=== PATIENT | male | born 1935 | race Caucasian/White ===

== ENCOUNTER 2016-11-18 01:55 | Emergency (ER) | payer OTHER ==
--- NOTE | 2016-11-18 02:06 | EDPHY ---
H & P HPI/ROS: HPI CHIEF COMPLAINT: Constipation, unable to urinate HISTORY OF PRESENT ILLNESS: This patient very pleasant 81-year-old male significant past medical history for atherosclerosis, osteoporosis, spinal stenosis, takes chronic opiates for chronic back pain, presents emergency room stating he has not had a normal bowel movement 2-3 days. He has been taking laxatives without a great result also did an enema. States of what is great concern this evening is that he was unable to urinate over the past 12 hours. States that he has only had this happen 1 other time when he got very constipated could not urinate, he was eventually able to fix his bowels and then was able to urinate again. States he has not urinated 12 hours. Complains of lower abdominal distention and discomfort. Denies back pain fever vomiting. Denies chest pain or shortness of breath. Past Medical History: Atherosclerotic disease, osteoporosis, spinal stenosis, chronic back pain on opiates Past Surgical History: No recent surgical history Social History: Denies daily use of drugs alcohol tobacco products Family History: Noncontributory ROS REVIEW OF SYSTEMS: A comprehensive 10 point review of systems is otherwise negative aside from elements mentioned in the history of present illness. Exam Constitutional triage nursing summary reviewed, vital signs reviewed, awake/ alert. Eyes normal conjunctivae and sclera, EOMI, PERRLA. HENT normal inspection, atraumatic, moist mucus membranes, no epistaxis, neck supple/ no meningismus, no raccoon eyes. Respiratory clear to auscultation bilaterally, normal breath sounds, no respiratory distress, no wheezing. Cardiovascular rate normal, regular rhythm, no murmur, no edema, distal pulses normal. Gastrointestinal abdomen distended lower abdomen suprapubic region consistent with distended bladder, hypoactive bowel sounds, no peritoneal signs Genitourinary no CVA tenderness. Musculoskeletal no midline vertebral tenderness, full range of motion, no calf swelling, no tenderness of extremities, no meningismus, good pulses, neurovascularly intact. Skin pink, warm, & dry, no rash, skin atraumatic. Neurologic awake, alert and oriented x 3, AAOx3, moves all 4 extremities equally, motor intact, sensory intact, CN II-XII intact, normal cerebellar, normal vision, normal speech. Psychiatric normal mood/affect. Heme/Lymph/Immune no lymphadenopathy. Differential Diagnosis: Urinary outflow obstruction, urinary retention, constipation, fecal impaction Medical Decision Making:plan for this patient IV establishment, blood draw CBC and BMP, check urinalysis, Samuels catheter placement, KUB. Re-evaluation: 0320: patient Samuels catheter placed. 700 cc of clear yellow urine was removed. He feels much better. Re-examination is abdomen is soft nontender no guarding or peritoneal signs not vomiting has no nausea. No chest pain or shortness of breath. I explained we should keep the catheter in due to urinary retention he will make appoint with Urology this week call there on Saturday morning for an appointment to have his catheter removed. Meanwhile I do recommend that he starts working on his bowels after taking MiraLax lots of water try to move his bowels appropriately. Also do recommend probably another enema. He understands return emergency room if he has any questions or concerns includes abdominal pain, fever, vomiting trouble with his Samuels catheter. We went over instructions on his Samuels catheter with him. He understands. Understands call Urology make a follow-up appointment does understand I will typically removed catheter here in emergency room after placement due to urinary retention causing needs time for bladder decompression. He understands this. ED x-ray KUB: One view: no free air, no evidence of bowel obstruction, stool in the rectal vault and the ascending colon. image interpreted myself. Source: Patient - Personal History Tetanus Vaccine Date: < 10 YEARS - Medical/Surgical History Hx Asthma: No Hx Chronic Respiratory Disease: No Hx Diabetes: No Hx Cardiac Disease: No Hx Renal Disease: No Hx Cirrhosis: No Hx Alcoholism: No Hx HIV/AIDS: No Hx Splenectomy or Spleen Trauma: No Other PMH: OSTEOPOROSIS, SPINAL STENOSIS - Social History Smoking Status: Never smoked Constitutional: Initial Vital Signs Temperature (C) 36.6 C 11/18/16 02:00 Heart Rate 81 11/18/16 02:00 Respiratory Rate 18 11/18/16 02:00 Blood Pressure 163/92 H 11/18/16 02:00 O2 Sat (%) 95 11/18/16 02:00 O2 Delivery Mode Room Air Allergies/Adverse Reactions: amoxicillin Allergy (Verified 11/18/16 02:08) penicillin G Allergy (Verified 11/18/16 02:08) Home Medications: Medication Instructions Recorded Ambien 03/12/16 Prednisone 03/12/16 oxyCODONE/APAP 5/325 [Percocet 1 - 2 tab PO Q4H PRN #14 tab 04/25/16 5/325 (*)] Docusate Sodium [Stool Softener] 50 mg PO 11/18/16 Herbal Drugs [[employer]] 1 each PO 11/18/16 Polyethylene Glycol 3350 [Miralax 17 gm PO DAILY #4 pkt 11/18/16 17 gm (*)] Simvastatin 10 mg PO 11/18/16 Medical Decision Making - Data Points Laboratory Results: Laboratory Results 11/18/16 02:20 11/18/16 02:20 11/18/16 11/18/16 11/18/16 03:10 02:20 02:20 WBC 14.08 10^3/uL H 10^3/uL (3.80-9.50) RBC 4.37 10^6/uL L 10^6/uL (4.40-6.38) Hgb 13.7 g/dL g/dL (13.7-17.5) Hct 41.0 % % (40.0-51.0) MCV 93.8 fL fL (81.5-99.8) MCH 31.4 pg pg (27.9-34.1) MCHC 33.4 g/dL g/dL (32.4-36.7) RDW 12.5 % % (11.5-15.2) Plt Count 356 10^3/uL 10^3/uL (150-400) MPV 9.0 fL fL (8.7-11.7) Neut % (Auto) 83.0 % H % (39.3-74.2) Lymph % (Auto) 7.7 % L % (15.0-45.0) [place] % (Auto) 7.6 % % (4.5-13.0) Eos % (Auto) 0.8 % % (0.6-7.6) Baso % (Auto) 0.5 % % (0.3-1.7) Nucleat RBC Rel Count 0.0 % % (0.0-0.2) Absolute Neuts (auto) 11.70 10^3/uL H 10^3/uL (1.70-6.50) Absolute Lymphs (auto) 1.08 10^3/uL 10^3/uL (1.00-3.00) Absolute Monos (auto) 1.07 10^3/uL H 10^3/uL (0.30-0.80) Absolute Eos (auto) 0.11 10^3/uL 10^3/uL (0.03-0.40) Absolute Basos (auto) 0.07 10^3/uL 10^3/uL (0.02-0.10) Absolute Nucleated RBC 0.00 10^3/uL 10^3/uL (0-0.01) Immature Gran % 0.4 % % (0.0-1.1) Immature Gran # 0.05 10^3/uL 10^3/uL (0.00-0.10) Sodium 136 mEq/L mEq/L (134-144) Potassium 3.9 mEq/L mEq/L (3.5-5.2) Chloride 102 mEq/L mEq/L (97-110) Carbon Dioxide 23 mEq/l mEq/l (22-31) Anion Gap 11 mEq/L mEq/L (8-16) BUN 17 mg/dL mg/dL (7-23) Creatinine 0.7 mg/dL mg/dL (0.7-1.3) Estimated GFR > 60 Glucose 92 mg/dL mg/dL (70-100) Calcium 8.9 mg/dL mg/dL (8.5-10.4) Urine Color Pending Urine Appearance Pending Urine pH Pending Ur Specific [place] Pending Urine Protein Pending Urine Ketones Pending Urine Blood Pending Urine Nitrate Pending Urine Bilirubin Pending Urine Urobilinogen Pending Ur Leukocyte Esterase Pending Ur Culture Indicated? Pending Urine Glucose Pending Departure - Departure Disposition: Home, Routine, Self-Care Clinical Impression: Urinary obstruction Constipation Qualifiers: Constipation type: other constipation type Qualified Code(s): K59.09 - Other constipation Condition: Good Instructions: Constipation (ED), Urinary Retention in Men (ED), Samuels Catheter Placement and Care (ED) Additional Instructions: 1. Drink lots of fluids stay well-hydrated. 2. Follow up with Urology to have her catheter removed. 3.Call there Saturday to make an appointment. 4. I have prescribed your MiraLax. I will take multiple doses of MiraLax to get her bowels moving. Drink lots of fluids. Referrals: Belinda Henderson MD [Primary Care Provider] - As per Instructions Nancy Sanchez MD [Medical Doctor] - As per Instructions Prescriptions: Polyethylene Glycol 3350 [Miralax 17 gm (*)] 17 gm PO DAILY #4 pkt
[2016-11-18 02:28] LABS: % IMMATURE GRANULYOCYTES 0.4 % (0.0-1.1); ABSOLUTE IMMATURE GRANULOCYTES 0.05 10^3/uL (0.00-0.10); ADD DIFF? NO; ADD MORPH? NO; ADD SCAN? NO; ATYPICAL LYMPHOCYTE FLAG 0 (0-99); FRAGMENT RBC FLAG 0 (0-99); HEMOGLOBIN 13.7 g/dL (13.7-17.5); LEFT SHIFT FLG 0 (0-99); LIPEMIA HEMOLYSIS FLAG 80 (0-99); MEAN CELL HEMOGLOBIN 31.4 pg (27.9-34.1); MEAN CELL HEMOGLOBIN CONCENTR. 33.4 g/dL (32.4-36.7); MEAN CELL VOLUME 93.8 fL (81.5-99.8); PLATELET CLUMPS FLAG 0 (0-99); PLATELET COUNT 356 10^3/uL (150-400); RED BLOOD CELL COUNT 4.37 10^6/uL (4.40-6.38); RED CELL DISTRIBUTION WIDTH 12.5 % (11.5-15.2)
[2016-11-18 02:39] LABS: ANION GAP 11 mEq/L (8-16); CALCIUM 8.9 mg/dL (8.5-10.4); CARBON DIOXIDE 23 mEq/l (22-31); CHLORIDE 102 mEq/L (97-110); CREATININE 0.7 mg/dL (0.7-1.3); GLOMERULAR FILTRATION RATE > 60; GLUCOSE 92 mg/dL (70-100); POTASSIUM 3.9 mEq/L (3.5-5.2); SODIUM 136 mEq/L (134-144)
[2016-11-18 03:17] LABS: COLOR YELLOW; LEUKOCYTE ESTERASE,URINE NEGATIVE (NEGATIVE); NITRITE,URINE NEGATIVE (NEGATIVE)
[2016-11-18 03:21] LABS: MUCUS TRACE /lpf (NONE-1+)
[2016-11-18 04:16] VITALS: BP 138/81; PULSE 70; RESP 20; TEMP 98.2; O2SAT 96
== END 2016-11-18 04:17 | disposition home or self-care (01) ==
PROC: 0T9B70Z Drainage of Bladder with Drainage Device, Via Natural or Artificial Opening (ICD-10-PCS; principal; 2016-11-18)
DX: K59.09 Other constipation (principal); N13.9 Obstructive and reflux uropathy, unspecified

== ENCOUNTER 2016-12-26 07:01 | Emergency (ER) | payer OTHER ==
[2016-12-26 07:09] VITALS: BP 121/64; PULSE 84; RESP 20; TEMP 97.5; O2SAT 96
--- NOTE | 2016-12-26 07:12 | EDPHY ---
H & P HPI/ROS: CHIEF COMPLAINT: Right eye vision loss. HISTORY OF PRESENT ILLNESS: The patient is an 81-year-old male with atherosclerotic disease, spinal stenosis, and chronic back pain, on opiates, who presents with loss of vision in his right eye. The patient returned from a hike around 2pm yesterday and started seeing a "flashing light". He reports a a curtain coming down from his right eye. He states it was "like a thumb sticking down" that was opaque in color. At onset of his symptoms he developed an associated headache localized to the right temporal region. His headache lasted for 20 minutes and was sharp in nature. This morning his vision improved, though he is still having vague definition and "flashes" in the right eye. His left eye is normal per patients report. REVIEW OF SYSTEMS: A comprehensive 10 point review of systems is otherwise negative aside from elements mentioned in the history of present illness. Past Medical/Surgical History: Atherosclerotic disease, Spinal stenosis, Chronic back pain- on opiates. Social History: Nonsmoker. No recent alcohol. Smoking Status: Never smoked Physical Exam: General Appearance: Alert, pleasant, visual acuity reviewed Eyes: Pupils equal and round, no conjunctival pallor or injection, EOMI, Visual field by confrontation: rt eye-decreased vision superior 1/2 of visual field ENT, Mouth: Mucous membranes moist Neck: Normal inspection Respiratory: Lungs are clear to auscultation Cardiovascular: Regular rate and rhythm Gastrointestinal: Abdomen is soft and non-tender Neurological: Alert, oriented x3, cranial nerves II through XII intact, motor 5/ 5, sensory intact to light touch, normal gait. Skin: Warm and dry, no rash Extremities: Nontender, no pedal edema Psychiatric: Mood and affect normal Constitutional: Initial Vital Signs Temperature (C) 36.4 C 12/26/16 07:05 Heart Rate 84 12/26/16 07:05 Respiratory Rate 20 12/26/16 07:05 Blood Pressure 121/64 H 12/26/16 07:05 O2 Sat (%) 96 12/26/16 07:05 O2 Delivery Mode Room Air Allergies/Adverse Reactions: amoxicillin Allergy (Verified 12/26/16 07:04) penicillin G Allergy (Verified 12/26/16 07:04) Home Medications: Medication Instructions Recorded Ambien 03/12/16 Prednisone 03/12/16 oxyCODONE/APAP 5/325 [Percocet 1 - 2 tab PO Q4H PRN #14 tab 04/25/16 5/325 (*)] Docusate Sodium [Stool Softener] 50 mg PO 11/18/16 Herbal Drugs [[employer]] 1 each PO 11/18/16 Polyethylene Glycol 3350 [Miralax 17 gm PO DAILY #4 pkt 11/18/16 17 gm (*)] Simvastatin 10 mg PO 11/18/16 Medical Decision Making ED Course/Re-evaluation: The patient is an 81 year old male complaining of loss of vision in the superior aspect of his right eye that started 17 hours ago. Concerning for retinal detachment. 7:30 a.m: I spoke to Dr. Manuel, Ophthalmology, He would like the patient to go directly to his office, they open at 8:30 a.m. and will see the patient this morning. Differential Diagnosis: Differential diagnosis includes hyphema, acute iritis, traumatic mydriasis, corneal abrasion, globe rupture. Departure - Departure Disposition: Home, Routine, Self-Care Clinical Impression: Retinal detachment Qualifiers: Laterality: right Qualified Code(s): H33.21 - Serous retinal detachment, right eye Condition: Good Instructions: Blurred Vision (ED) Additional Instructions: Please go directly to Dr. Manuel, Ophthalmology. office for further evaluation. Do not eat or drink anything before your office visit. Referrals: Torsten Manuel MD [Medical Doctor] - As per Instructions Report Scribed for: Marlene Ramírez Report Scribed by: Nicki Eduardo Date of Report: 12/26/16 Time of Report: 07:10 Physician Review and Approval Statement: 12/26/16 07:10 Portions of this note were transcribed by a medical communication specialist. I personally performed the history, physical exam, and medical decision-making; and confirmed the accuracy of the information in the transcribed note.
== END 2016-12-26 07:42 | disposition home or self-care (01) ==
DX: H33.21 Serous retinal detachment, right eye (principal)

== ENCOUNTER 2017-05-05 08:39 | Emergency (ER) | payer OTHER ==
[2017-05-05 08:46] VITALS: RESP 18; O2SAT 96
[2017-05-05] MEDS ORDERED: DOXYCYCLINE HYCLATE 100 MG CAP/TAB PO ONE (09:27)
--- NOTE | 2017-05-05 09:27 | EDPHY ---
H & P Time Seen by Provider: 05/05/17 09:18 HPI/ROS: CHIEF COMPLAINT: Leg leg redness HISTORY OF PRESENT ILLNESS: The patient is an 82-year-old male who presents to the emergency department with right leg redness. He states 1 week ago he was hiking and struck his heart on a log. He had an abrasion which has been healing well. It now has surrounding redness since this morning. It does not streak up the leg. He has no fevers or chills. No increased pain. No discharge. REVIEW OF SYSTEMS: My complete review of systems is negative except as mentioned in the HPI. Past Medical/Surgical History: Includes polymyalgia rheumatica, spinal stenosis, osteoporosis Smoking Status: Never smoked Physical Exam: General Appearance: Alert and no distress. Head: Pupils equal. Normal. Respiratory: No respiratory distress. Cardiac: regular rate and rhythm. Extremities: his right anterior heart has a quarter-size abrasion that appears to be healing. There is mild surrounding erythema. No significant streaking up the leg. No edema. Neurovascular intact distally. Skin: No rashes or lesions. Neuro: Alert. Normal mood and affect. Constitutional: Initial Vital Signs Temperature (C) 36.4 C 05/05/17 08:43 Heart Rate 74 05/05/17 08:43 Respiratory Rate 18 05/05/17 08:43 Blood Pressure 121/72 H 05/05/17 08:43 O2 Sat (%) 96 05/05/17 08:43 O2 Delivery Mode Room Air Allergies/Adverse Reactions: amoxicillin Allergy (Verified 05/05/17 08:42) penicillin G Allergy (Verified 05/05/17 08:42) Home Medications: Medication Instructions Recorded Ambien 03/12/16 Prednisone 03/12/16 Docusate Sodium [Stool Softener] 50 mg PO 11/18/16 Herbal Drugs [[employer]] 1 each PO 11/18/16 Polyethylene Glycol 3350 [Miralax 17 gm PO DAILY #4 pkt 11/18/16 17 gm (*)] Simvastatin 10 mg PO 11/18/16 Doxycycline Hyclate 100 mg PO BID #14 tablet 05/05/17 Medical Decision Making ED Course/Re-evaluation: In the emergency department I discussed possible etiologies with the patient. I answered all his questions. I do not feel he needs imaging. He has an allergy to penicillin. He was started on doxycycline. He is given warnings prior to leaving. He will return with worsening symptoms. Differential Diagnosis: Ventral includes but is not limited to abrasion, contusion, cellulitis, abscess , bacteremia, sepsis Departure - Departure Disposition: Home, Routine, Self-Care Clinical Impression: Cellulitis Qualifiers: Site of cellulitis: extremity Site of cellulitis of extremity: lower extremity Laterality: right Qualified Code(s): L03.115 - Cellulitis of right lower limb Condition: Good Instructions: Cellulitis (ED) Additional Instructions: Return with increasing redness, pain, fever or any other concerns. Take your entire course of antibiotics. Referrals: Belinda Henderson MD [Primary Care Provider] - 3-4 days, if not improved Prescriptions: Doxycycline Hyclate 100 mg PO BID #14 tablet
[2017-05-05 09:41] VITALS: BP 141/78; PULSE 59; TEMP 98.1
== END 2017-05-05 09:43 | disposition home or self-care (01) ==
DX: L03.115 Cellulitis of right lower limb (principal)

== ENCOUNTER 2017-05-08 09:38 | Emergency (ER) | payer OTHER ==
--- NOTE | 2017-05-08 09:56 | EDPHY ---
HPI/HX/ROS/PE/MDM Narrative: CHIEF COMPLAINT: Right leg redness HPI: The patient is an 82 y/o male complaining of worsening right leg redness. He was seen in this ED 3 days ago for an abrasion with surrounding redness he got while hiking. The redness initially went away, but has since returned. He has been taking doxycycline, but denies taking it today. Denies fever, discharge, increased pain, numbness or other pertinent symptoms. Prior medical records reviewed including ED visit with Dr. Ernandez on 05/05/17. REVIEW OF SYSTEMS: Aside from elements discussed in the HPI, a comprehensive 10-point review of systems was reviewed and is negative. PMH: Polymyalgia rheumatica, spinal stenosis, osteoporosis SOCIAL HISTORY: Lives in [place], single, retired PHYSICAL EXAM: General:Patient is alert, in no acute distress. ENT:Eyes are normal to inspection. ENT inspection normal. Neck: Normal inspection. Full range of motion. Respiratory:No respiratory distress. Breath sounds normal bilaterally. Cardiovascular: Regular rate and rhythm. Strong peripheral pulses. Normal cap refill. Abdomen:The abdomen is nontender to palpation. There are no peritoneal signs. There are normal bowel sounds. Back: Normal to inspection. No tenderness to palpation. Skin: Quarter size abrasion healing well on right medial lower leg with erythema that fills the borders and 2 inches outside of the border in inferior direction. Otherwise normal color. No rash. Warm and dry. Extremities: Normal appearance. Full range of motion. Neuro: Oriented x3. Normal motor function. Normal sensory function. Portions of this note were transcribed by an ED scribe. I personally performed the history, physical exam, and medical decision making; and confirm the accuracy of the information in the transcribed note. ED Course: The patient is an 82 y/o male presenting with a quarter size abrasion healing well on his right medial lower leg. There is erythema around the abrasion that fills the borders and 2 inches outside of the border in the inferior direction. Per the patient, the erythema initially decreased but has since blossomed. 1020: Consulted with Dr. Apple, infectious disease, he accepts to see this patient at 3pm today in the infectious disease clinic. 1026: Reassessed patient and discussed plan to place him on Clindamycin and followup with Dr. Apple. Return precautions provided; patient is comfortable with this plan. General Time Seen by Provider: 05/08/17 09:46 Initial Vital Signs: Initial Vital Signs Temperature (C) 36.4 C 05/08/17 09:40 Heart Rate 70 05/08/17 09:40 Respiratory Rate 18 05/08/17 09:40 Blood Pressure 99/59 L 05/08/17 09:40 O2 Sat (%) 95 05/08/17 09:40 O2 Delivery Mode Room Air Allergies/Adverse Reactions: amoxicillin Allergy (Verified 05/08/17 09:39) penicillin G Allergy (Verified 05/08/17 09:39) Home Medications: Medication Instructions Recorded Ambien 03/12/16 Prednisone 03/12/16 Docusate Sodium [Stool Softener] 50 mg PO 11/18/16 Herbal Drugs [[employer]] 1 each PO 11/18/16 Polyethylene Glycol 3350 [Miralax 17 gm PO DAILY #4 pkt 11/18/16 17 gm (*)] Simvastatin 10 mg PO 11/18/16 Doxycycline Hyclate 100 mg PO BID #14 tablet 05/05/17 Clindamycin HCl [Clindamycin] 300 mg PO TID #30 cap 05/08/17 Departure - Departure Disposition: Home, Routine, Self-Care Clinical Impression: Cellulitis Qualifiers: Site of cellulitis: extremity Site of cellulitis of extremity: lower extremity Laterality: right Qualified Code(s): L03.115 - Cellulitis of right lower limb Condition: Good Instructions: Cellulitis (ED) Additional Instructions: You have an appointment with Dr. Manuel Apple, infectious disease, at 3pm this afternoon. You can call him if this time does not work for you. Take Clindamycin as prescribed, stop taking doxycycline. Return to the Emergency Department for fever, redness, discharge from wound, increasing pain or other worsening of condition. Referrals: Belinda Henderson MD [Primary Care Provider] - As per Instructions Manuel Apple MD [Medical Doctor] - As per Instructions Prescriptions: Clindamycin HCl [Clindamycin] 300 mg PO TID #30 cap Report Scribed for: Gallo Ashraf Report Scribed by: Mell García Date of Report: 05/08/17 Time of Report: 10:02
[2017-05-08 10:45] VITALS: BP 102/73; PULSE 81; RESP 16; TEMP 99; O2SAT 97
== END 2017-05-08 10:44 | disposition home or self-care (01) ==
DX: L03.115 Cellulitis of right lower limb (principal)